=== PATIENT | male | born 1980 | race Caucasian/White ===

== ENCOUNTER 2020-10-25 20:59 | Emergency (ER) | payer OTHER, SELFPAY ==
--- NOTE | ~2020-10-25 | XR_ITS ---
EXAMINATION: XR HAND, LEFT CLINICAL INFORMATION: Splintering and COMPARISON: None TECHNIQUE: Four views of the left hand. FINDINGS: The bones and soft tissues are normal aside from some mild swelling at the thenar eminence. No fracture. Alignment is anatomic. Joint spaces are maintained. No erosions or soft tissue calcifications. No radiopaque foreign body is seen with certainty. XR/XR hand LT 2V IMPRESSION: Swelling at the saphenofemoral eminence. The bones and joints appear normal and no foreign body is seen.
[2020-10-25 21:18] VITALS: BP 137/85; PULSE 88; RESP 16; TEMP 36.2; O2SAT 97; BMI 27.7
--- NOTE | 2020-10-25 22:59 | ED_ITS ---
HPI - Skin/Abscess/Foreign Bdy General Chief complaint: Skin/Abscess/Foreign Body Stated complaint: splinter Time Seen by Provider: 10/25/20 22:22 Source: patient Mode of arrival: ambulatory Limitations: no limitations History of Present Illness HPI narrative: 40-year-old male with no significant past medical history presents with a wooden splinter to his left palm. He tried to remove the splinter with his teeth however it was too big and it broke off inside of his palm. He does not know when his last Tdap vaccine was given. He does not report any other symptoms, and has full range of motion to his fingers. MD complaint: foreign body Onset (ago): hour(s) (Within the hour arrival) Tetanus up to date: no Location: L hand Severity: moderate Quality: burning Pain Consistency: constant Exacerbating factors: palpation Associated symptoms: denies other symptoms Treatments prior to arrival: bandages Related Data Allergies Allergy/AdvReac Type Severity Reaction Status Date / Time No Known Allergies Allergy Verified 10/25/20 21:22 Review of Systems Review of Systems: Constitutional: No Fever, No Chills ENT/Mouth: No Ear Pain, No Hoarseness, No sore throat Eyes: No Eye Pain, No Swelling, No Redness, No Foreign Body Cardiovascular: No Chest Pain, No SOB Respiratory: No Cough, No Dyspnea Gastrointestinal: No Nausea, No Vomiting, No Diarrhea, No abdominal Pain Genitourinary: No Dysuria, No Hematuria Musculoskeletal: positive left palm pain, No Myalgias, No Joint Swelling Skin: Positive foreign body to the left palm, No Skin lacerations, No rash Neuro: No Weakness, No Numbness, No Paresthesias, No Loss of Consciousness, No Dizziness, No Headache Psych: No Anxiety/Panic, No Depression Heme/Lymph: no easy bruising, no Lymphadenopathy Endocrine: No Polyuria, No Polydipsia Yes all other systems are reviewed and are negative PMFSH Past Medical History Attestation statement: The following information was validated with the patient. Source: old records reviewed Medical History No known health problems Social History Social History Smoked in Last 30 Days: No Use of substances other than those prescribed or required for medical reasons: No Advance Directives: No Physical Exam Vital Signs: Vital Signs: Last Vital Signs Temp 97.2 F 10/25/20 21:18 Pulse 88 10/25/20 21:18 Resp 16 10/25/20 21:18 BP 137/85 10/25/20 21:18 Pulse Ox 97 10/25/20 21:18 Body Mass Index 27.7 Appearance: Alert. Oriented X3. No acute distress. Eyes: Pupils equal, round and reactive to light. ENT: Pharynx normal. Neck: Normal inspection. Neck supple. CVS: Normal heart rate and rhythm. Pulses normal. Respiratory: No respiratory distress. Breath sounds normal. Abdomen: Soft and nontender. Skin: Palpable foreign body to the left thenar process, puncture wound consistent with wooden splinter Skin warm and dry. Normal skin color. Normal skin turgor. Extremities: No lower extremity edema. Full range of motion to all extremities, no tendon injury noted to fingers, no snuffbox tenderness, brisk capillary refill to all digits Neuro: No motor deficit. No sensory deficit. Course Course Course Narrative: 40-year-old male with no significant past medical history presents with foreign body to the left thenar process. Plan of care is to x- ray, and remove splinter. Prepped and draped in sterile fashion, 2 mL of lidocaine used to anesthetize, 0.5 cm incision made with 11 blade, 2 cm wooden splinter removed from patient's thenar process. Irrigated with copious amounts of sterile saline Betadine mixture. Dressed with Xeroform, gauze and Sriram. Patient tolerated procedure well. Approximately 30 minutes after procedure brisk capillary refill, no complaints of pain, full range of motion to all digits, no tendon injury noted. Patient verbalized understanding of wound care instructions. Patient verbalized understanding of and agrees to plan of care discharge home. MDM - Skin/Abscess/Foreign Bdy MDM Narrative Medical decision making narrative: Foreign body Imaging Data Left hand x-ray: Attestation: I personally reviewed and interpreted this imaging study as follows: Radiologist's impression: EXAMINATION: XR HAND, LEFT CLINICAL INFORMATION: Splintering and COMPARISON: None TECHNIQUE: Four views of the left hand. FINDINGS: The bones and soft tissues are normal aside from some mild swelling at the thenar eminence. No fracture. Alignment is anatomic. Joint spaces are maintained. No erosions or soft tissue calcifications. No radiopaque foreign body is seen with certainty. XR/XR hand LT 2V IMPRESSION: Swelling at the saphenofemoral eminence. The bones and joints appear normal and no foreign body is seen. Discharge Plan Discharge Clinical Impression: Foreign body (FB) in soft tissue Patient Disposition: Home, Self-Care Instructions: Soft Tissue Foreign Body (ED) Additional Instructions: You were evaluated for a splinter to the left palm. We were able to remove a 2 cm piece of wood splinter. Please follow wound care instructions. Follow-up with primary care physician as needed. If you notice purulent (pus) drainage, redness, swelling, inability to close the hand, or move the fingers please return to the emergency department immediately. Thank you for choosing this emergency department for evaluation. Please follow-up with primary care physician as needed. Return to the emergency department for any new, concerning, or worsening symptoms. Stand Alone Forms: Work/School Release Interventions: ED Discharge Assessment Last Done: 10/25/20 23:15 Discharge Date/Time: 10/25/20 23:16
[2020-10-25] MEDS: Lidocaine HCl 2 % MPF 5 ML VIAL SUBCUT (23:09)
== END 2020-10-25 23:16 | disposition home or self-care (01) ==
PROVIDERS: Emergency Provider Emergency Medicine
DX: S61.442A Puncture wound with foreign body of left hand, initial encounter (principal); W45.8XXA Other foreign body or object entering through skin, initial encounter; Y93.89 Activity, other specified; Y92.017 Garden or yard in single-family (private) house as the place of occurrence of the external cause; Y99.9 Unspecified external cause status
CPT/HCPCS: 10120; 73120; 90471; 90715; 99284

== ENCOUNTER 2020-11-13 14:04 | Outpatient (REF) | payer OTHER, SELFPAY ==
[2020-11-14 11:16] LABS: SARS COV2 PCR INHOUSE NEGATIVE (Negative)
== END 2020-11-13 14:05 | disposition home or self-care (01) ==
LOC: HO.LAB 14:04
PROVIDERS: Visit Provider Internal Medicine
DX: Z20.822 Contact with and (suspected) exposure to COVID-19 (principal)
CPT/HCPCS: C9803; U0003